=== PATIENT | female | born 1990 | race Caucasian/White ===

== ENCOUNTER 2022-12-11 11:17 | Emergency (ER) | payer MEDICAID, OTHER ==
[~2022-12-11] VITALS: Ht 165.1 cm; Wt 66.7 kg
[2022-12-11] MEDS ORDERED: IBUPROFEN 800 MG TABLET PO ONE (12:00)
[2022-12-11] MEDS ORDERED: IBUPROFEN 800 MG TABLET ONE (12:12)
[2022-12-11 13:46] LABS: *URINE HCG, QUAL NEGATIVE (NEGATIVE)
[2022-12-11] MEDS ORDERED: IBUP-1957 PO (14:54)
[2022-12-11 15:03] VITALS: BP 126/70; TEMP 98; O2SAT 98
== END 2022-12-11 15:00 | disposition home or self-care (01) ==
LOC: ER 11:17
DX: S16.1XXA Strain of muscle, fascia and tendon at neck level, initial encounter (principal); S39.012A Strain of muscle, fascia and tendon of lower back, initial encounter; Z79.1 Long term (current) use of non-steroidal anti-inflammatories (NSAID); V89.2XXA Person injured in unspecified motor-vehicle accident, traffic, initial encounter; Y93.89 Activity, other specified; Y92.89 Other specified places as the place of occurrence of the external cause; Y99.8 Other external cause status
CPT/HCPCS: 72125; 72131; 84703; A4663